=== PATIENT | male | born 1955 | race Caucasian/White ===

== ENCOUNTER → 2017-04-19 | Outpatient (CLI) | payer OTHER ==
--- NOTE | ~2017-04-19 | P ---
[facility] [place] [address] PROCEDURE REPORT Name: GO ESQUIVEL Room #: REG [facility]#: [id number] Admission: 04/19/17 Attend Phys: Kishan Samson MD Discharge: Date of : 55 Report #: [id number] THIS REPORT FOR: //name// CC: Chacha PEARSON DATE OF SERVICE: 04/19/2017 BRIEF HISTORY: The patient is a 61-year-old male followed by Dr. Cortez, who has a history of a long-segment Guillermo esophagus, who was recently found to have evidence of low-grade dysplasia and was recommended for radiofrequency ablation of the Guillermo mucosa. PREOPERATIVE DIAGNOSIS: Long-segment Guillermo with low-grade dysplasia. POSTOPERATIVE DIAGNOSES: 1. Long-segment Guillermo with low-grade dysplasia. 2. Moderate sliding type hiatus hernia. MEDICATIONS: Deep sedation with propofol per anesthesia. SPECIMEN: None. ESTIMATED BLOOD LOSS: None. PROCEDURE: EGD with radiofrequency ablation of Guillermo mucosa. FINDINGS: Prior to propofol sedation, procedure of upper endoscopy was discussed with the patient as well as potential risks and its complications. He indicates he understands and desires to proceed. DESCRIPTION OF PROCEDURE: With the patient in left lateral decubitus position, the [employer] video endoscope was inserted in the cervical esophagus under direct vision without difficulty. Examination of this organ through its entire length revealed normal esophageal mucosa in the proximal to mid esophagus. However, the scope was advanced distally, typical appearing Guillermo mucosa was seen. There was approximately 8 cm segment of Guillermo mucosa. Guillermo mucosa involved the entire circumference of the esophagus. The Guillermo extended down to the top of the gastric folds. At this point, he had about a 3-4 cm sliding type hiatus hernia. Mucosa of the hernia was normal. The Guillermo mucosa was carefully inspected. It was completely flat; no strictures, masses, ulcers, nodules or raised lesions. Scope was advanced through the hernia into the stomach, which was examined on end view as well as retroflexed views. The gastric mucosa was normal. On retroflexion, no mass lesions were seen. The hiatus hernia was again noted. The scope was advanced distally. The pylorus was normal. [facility] [address] [place] [address] PROCEDURE REPORT Name: GO ESQUIVEL Room #: REG [facility].Ofelia.#: [id number] Admission: 04/19/17 Attend Phys: Kishan Samson MD Discharge: Date of : 55 Report #: [id number] Duodenal bulb was normal and duodenal sweep was normal. At that point, the scope was drawn back in the esophagus. We then carefully rinsed the esophagus with Mucomyst solution. The scope was withdrawn and fitted with the 90 Ultra device and reinserted back into the esophagus. We then treated his esophagus from the top of the gastric folds to the Z line in the mid esophagus. Two applications of 12 joules and 40 hernandez were applied. On the first pass, a total of 34 applications were applied. The scope and the device were withdrawn. The device was fitted with a cleaning chamber. We then scraped the coagulant from the benoit of the esophagus. The cleaning device was reinserted in the esophagus. Two applications were applied once further at each point. However, due to spasticity and reduced visibility, we terminated the procedure after a total of 60 applications were applied for both the first pass and the second pass. There was good hemostasis. Scope was withdrawn. The patient tolerated the procedure well. CONDITION OF THE PATIENT UPON DISCHARGE: Following procedure, the patient drowsy and will be discharged home when fully ambulatory. INSTRUCTIONS TO THE PATIENT AND FAMILY AT THE TIME OF DISCHARGE: We will have the patient use omeprazole 20 mg twice daily. We will also have him start clear liquid diet. He is to use a GI cocktail as needed as well as hydrocodone elixir as needed. We will also use sucralfate 1 gram 4 times daily. He will return for repeat treatment in about 8 weeks. <ELECTRONICALLY SIGNED> By: Kishan Samson MD 04/23/17 1216 0928 [id number] Kishan Samson MD /nt
== END | disposition home or self-care (01) ==
LOC: GI 07:08
DX: K22.710 Barrett's esophagus with low grade dysplasia (principal); K44.9 Diaphragmatic hernia without obstruction or gangrene
CPT/HCPCS: 62110; 62900

== ENCOUNTER → 2017-08-30 | Outpatient (CLI) | payer OTHER ==
[~2017-08-30] VITALS: Ht 177.8 cm; Wt 107.0 kg
[~2017-08-30] MED LIST: BENICAR20 MG PO; CENTRUM SILVER1 EAC2 PO; OMEPRAZOLE40 MG PO; VITAMIN D-32000 UNIT PO
--- NOTE | ~2017-08-30 | P ---
[facility] [place] [address] PROCEDURE REPORT Name: GO ESQUIVEL [id number] Admission: 08/30/17 Attend Phys: Kishan Samson MD Discharge: Date of : 55 Report #: [id number] THIS REPORT FOR: //name// CC: URVASHI PEARSON BRIEF HISTORY: The patient is a 62-year-old male with history of an 8 cm segment Guillermo esophagus, low-grade dysplasia. He presents for followup of his initial treatment of Guillermo esophagus with radiofrequency ablation. PREOPERATIVE DIAGNOSIS: Guillermo esophagus with low-grade dysplasia. POSTOPERATIVE DIAGNOSES: 1. Guillermo esophagus with low-grade dysplasia. 2. Xxkwq-rv-nbwxgnoe sliding type hiatus hernia. MEDICATIONS: Deep sedation with propofol per anesthesia. SPECIMEN: None. ESTIMATED BLOOD LOSS: 3 mL. PROCEDURE: EGD with radiofrequency ablation of residual Guillermo mucosa in the distal esophagus. FINDINGS: Prior to propofol sedation, the procedure of EGD and radiofrequency ablation was reviewed with the patient as well as potential risks and its complications. He indicates he understands and desires to proceed. DESCRIPTION OF PROCEDURE: With the patient in left lateral decubitus position, the [employer] video endoscope was inserted in the cervical esophagus under direct vision without difficulty. Examination of this organ through its entire length revealed normal esophageal mucosa into the distal esophagus. In the distal esophagus, there were noted to be multiple islands of Guillermo mucosa surrounded by normal-appearing squamous mucosa. The squamocolumnar junction was inspected and there did appear to be a broad tongue at the squamocolumnar junction as well. No strictures or masses were seen. All the Guillermo mucosa was flat. The scope was advanced into a ebnnf-vv-sihwhysj sized sliding type hiatus hernia. Mucosa in the hernia was unremarkable. Scope was advanced in the stomach, was examined on end view as well as retroflexed views. The mucosa was normal on end view as well as retroflexed views. The hiatus hernia was seen in the retroflexed position. No mass lesions were seen. The pylorus, duodenal bulb and postbulbar sweep were inspected and noted to be unremarkable. Scope was withdrawn back into the esophagus. We rinsed the distal esophagus with Mucomyst solution. The Mucomyst solution was aspirated away. We then [address] [address] PROCEDURE REPORT Name: GO ESQUIVEL Room #: REG Ede Castro#: [id number] Admission: 08/30/17 Attend Phys: Kishan Samson MD Discharge: Date of : 55 Report #: [id number] withdrew the scope and fitted with the ____ device and reinserted the scope with the device and treated all visible areas of Guillermo's and distal esophagus with 12 joules per cm2 squared with 40 hernandez per cm2. Each point was treated with 2 applications of radiofrequency energy. Scope withdrawn, the device was removed and scope was fitted with a cleaning chamber and the coagulant was scraped off of the treated areas. We then placed the clean device on the scope and repeated treatment at all points. A total of 9 areas were treated today with a total of 4 applications to each area. The patient tolerated the procedure well. CONDITION OF THE PATIENT UPON DISCHARGE: Following procedure, the patient drowsy, aroused, conversant and will be discharged home when fully ambulatory. INSTRUCTIONS TO THE PATIENT AND FAMILY AT THE TIME OF DISCHARGE: He should continue his PPI therapy. He should start with clear liquids today and advance as tolerated. We should repeat his EGD with possible radiofrequency ablation in about 8 weeks. By: 0938 [id number] Kishan Samson MD /zaria
== END ==
LOC: GI 07:41
DX: K22.710 Barrett's esophagus with low grade dysplasia (principal); K44.9 Diaphragmatic hernia without obstruction or gangrene; K21.9 Gastro-esophageal reflux disease without esophagitis; Z79.899 Other long term (current) drug therapy; Z98.890 Other specified postprocedural states; I12.9 Hypertensive chronic kidney disease with stage 1 through stage 4 chronic kidney disease, or unspecified chronic kidney disease; N18.3 Chronic kidney disease, stage 3 (moderate)
CPT/HCPCS: 62110

== ENCOUNTER → 2017-11-01 | Outpatient (CLI) | payer OTHER ==
[~2017-11-01] VITALS: Ht 177.8 cm; Wt 104.3 kg
--- NOTE | ~2017-11-01 | P ---
[facility] [place] [address] PROCEDURE REPORT Name: GO ESQUIVEL Room #: REG [facility].#: [id number] Admission: 11/01/17 Attend Phys: Kishan Samson MD Discharge: Date of : 55 Report #: [id number] THIS REPORT FOR: //name// CC: Chacha PEARSON BRIEF HISTORY: The patient is a 62-year-old male with a known 70 cm segment of Guillermo esophagus for followup radiofrequency ablation of his Guillermo mucosa. He was last treated a little more than 8 weeks ago and presents for followup treatment. He reports he has done well. PREOPERATIVE DIAGNOSES: Long segment Guillermo esophagus with low-grade dysplasia. POSTOPERATIVE DIAGNOSES: 1. Long segment Guillermo esophagus, low-grade dysplasia. 2. Tcfgj-tm-vybthkdd hiatus hernia. MEDICATIONS: Deep sedation with propofol per anesthesia. SPECIMEN: None. ESTIMATED BLOOD LOSS: None. PROCEDURE: EGD with radiofrequency ablation of Guillermo esophagus. FINDINGS: Prior to propofol sedation, the procedure of upper endoscopy and radiofrequency ablation was discussed with the patient as well as potential risks, benefits, and complications. He indicates he understands and desires to proceed. With the patient in left lateral decubitus position, the [employer] video endoscope was inserted in the cervical esophagus under direct vision without difficulty. Examination of this organ through its entire length revealed mostly normal appearing squamous mucosa. However, multiple islands of Guillermo mucosa were noted scattered throughout the entire distal 8 cm segment of the esophagus. They were all flat. None of the areas were raised. These islands extended from the squamocolumnar junction to the mid esophagus. The scope was advanced into the stomach, which was examined on end view as well as retroflexed views. He had normal appearing gastric mucosa. No ulcers or mass lesions were seen. Upon retroflexion, no mass lesions were seen. The pylorus, duodenal bulb, and postbulbar sweep were inspected and noted to be within normal limits. The scope was then withdrawn back in the esophagus. The esophagus was rinsed with a Mucomyst solution. After rinsing, the Mucomyst was aspirated from the esophageal lumen in the stomach. The scope was withdrawn and fitted with a [facility] [address] [place] [address] PROCEDURE REPORT Name: GO ESQUIVEL Room #: REG [facility].#: [id number] Admission: 11/01/17 Attend Phys: Kishan Samson MD Discharge: Date of : 55 Report #: [id number] radiofrequency 60 catheter. The scope and catheter were reintroduced in the esophagus under direct vision without difficulty. We then went and targeted 15 areas and treated all visible areas of Barretts with 2 applications of 12 joules per cm2 and 40 hernandez per cm2. Two applications were applied at each point and on the first pass, a total of 30 applications were applied. The scope was withdrawn, the device was removed and cleaned and the scope was fitted with a cleaning chamber and the mucosa was scraped from the treated areas. We then returned with a device and repeated applications in all areas and with some overlap we used a 32 additional applications at the same energy settings for a total of 62 applications today. All visible areas were treated. The scope and device were withdrawn. The patient tolerated the procedure well. CONDITION OF THE PATIENT UPON DISCHARGE: Following procedure, the patient drowsy, arousable and conversant and will be discharged home when fully ambulatory. INSTRUCTIONS TO THE PATIENT AND FAMILY AT THE TIME OF DISCHARGE: The patient with Guillermo, treated as described above. He should continue twice daily PPI. May use GI cocktail and Tylenol No.3 Elixir as needed. He should return in 8 weeks for repeat evaluation and possible treatment or biopsy at this time. <ELECTRONICALLY SIGNED> By: Kishan Samson MD 11/01/17 1656 0827 1135 Kishan Samson MD /nt
== END | disposition home or self-care (01) ==
LOC: GI 06:35
DX: K22.710 Barrett's esophagus with low grade dysplasia (principal); K44.9 Diaphragmatic hernia without obstruction or gangrene; I12.9 Hypertensive chronic kidney disease with stage 1 through stage 4 chronic kidney disease, or unspecified chronic kidney disease; N18.3 Chronic kidney disease, stage 3 (moderate); K21.9 Gastro-esophageal reflux disease without esophagitis; Z98.890 Other specified postprocedural states; Z79.899 Other long term (current) drug therapy

== ENCOUNTER → 2019-08-14 | Outpatient (CLI) | payer OTHER ==
[~2019-08-14] VITALS: Ht 177.8 cm; Wt 106.6 kg
[~2019-08-14] MED LIST changes: +ASPIR 8181 MG PO; +CARVEDILOL12.5 MG PO; +FISH OIL 1,001000 M2 PO; +LIPITOR80 MG PO; +OLMESARTAN MEDO20 MG PO; +TYLENOL EXTRA500 MG PO; +VIAGRA100 MG PO
--- NOTE | 2019-08-17 14:58 | P ---
[facility] [place] [address] PROCEDURE REPORT Name: GO ESQUIVEL [id number] Admission: 08/14/19 Attend Phys: Kishan Samson MD Discharge: Date of : 55 Report #: [id number] THIS REPORT FOR: //name// CC: JAMESON Samson OUTPATIENT ENDOSCOPY REPORT BRIEF HISTORY: The patient is a 63-year-old male, who has a history of long segment Guillermo with low-grade dysplasia, who had previously undergone radiofrequency ablation. However, he had a cardiac event and required a stent placement and antiplatelet therapy. We were unable to discontinue antiplatelet therapy for followup treatment. He now presents for followup treatment of his long segment Guillermo's with low-grade dysplasia. His last treatment session was in 10/2017. PREOPERATIVE DIAGNOSIS: Long segment Guillermo's esophagus with low-grade dysplasia. POSTOPERATIVE DIAGNOSES: 1. Guillermo's esophagus, patchy. 2. A 3 cm sliding type hiatus hernia. 3. A small polypoid lesion, GE junction, benign appearance. MEDICATIONS: Deep sedation with propofol per anesthesia. SPECIMEN: Biopsy of polypoid lesion, GE junction. ESTIMATED BLOOD LOSS: 3 mL. PROCEDURE: EGD with radiofrequency ablation and biopsy. PROCEDURE FINDINGS: Prior to propofol sedation, the procedure of upper endoscopy and radiofrequency ablation was reviewed with the patient as well as potential risks and its complications. He indicates he understands and desires to proceed. DESCRIPTION OF PROCEDURE: With the patient in left lateral decubitus position, the Olympus video endoscope was inserted in cervical esophagus and advanced under direct vision. Examination of the esophagus through its entire length revealed normal appearing mucosa in the proximal and mid esophagus. However, as we advanced the scope distally, 35 cm, there were 3 islands of Guillermo's mucosa, which were no more than about 6 mm in greatest dimension. The mucosa was flat. No further evidence of Guillermo was seen until the squamocolumnar junction was inspected. There was an area where the squamocolumnar junction was irregular and thought possibly to represent an area of Guillermo. In addition, at this [facility] [address] [place] [address] PROCEDURE REPORT Name: ALVINGO Room #: REG ASH Johnson.#: [id number] Admission: 08/14/19 Attend Phys: Kishan Samson MD Discharge: Date of : 55 Report #: [id number] level, there was a smooth benign appearing polypoid lesion that was about 8 mm in greatest dimension. It was prominent and stuck out. This may just be a hyperplastic fold in the cardia of the stomach. However, since he has Guillermo and low-grade dysplasia, it was biopsied. The esophagus was examined with both white light and narrow banded imaging. The scope was advanced into a 3 cm sliding type hiatus hernia. The mucosa in the hernia was unremarkable. The scope was advanced fully into the stomach, was examined on end view as well as retroflexed views. The gastric mucosa was unremarkable. Examination of proximal stomach on end view as well as retroflexed views revealed the hiatus hernia. No other lesions. Specifically, a mass lesion was not seen. Pylorus was unremarkable. Duodenal bulb and postbulbar sweep were inspected and noted to be unremarkable. The scope was then withdrawn back into the esophagus and was rinsed with a Mucomyst solution. Fluid was aspirated away from the esophagus and the scope was withdrawn and fitted with the 90 treatment device. Initially, 3 areas of Guillermo were identified, 1 in squamocolumnar junction and 2 islands distally in the esophagus. All 3 areas were treated with 2 passes per automotive service consultant's instructions. We then withdrew the scope. The device was removed and cleaned. A cleaning chamber was attached to the endoscope and the scope was reinserted and the coagulants scraped from the treated areas. We then refilled with the device and returned to the esophagus. One more island of Guillermo was seen in the distal esophagus. This area was treated with 2 applications. The coagulant was scraped with the aids of the device and was treated with 2 more applications. The other 3 sites were also treated with 2 additional applications. All visible areas were treated. The scope was withdrawn. The patient tolerated the procedure well. CONDITION OF THE PATIENT UPON DISCHARGE: Following procedure, the patient drowsy, aroused, conversant, and will be discharged home when fully ambulatory. INSTRUCTIONS TO THE PATIENT AND FAMILY AT THE TIME OF DISCHARGE: We will follow up on the path obtained today. I suspect this is just a hyperplastic fold, but we will follow up on biopsies. 3 focal areas were treated today. We will have him return in 8 weeks for repeat endoscopy and possible treatment, however, hopefully at that time, all areas of Guillermo's would have been treated. He should start with clear liquid diet today and advance as tolerated. He should continue his twice daily PPI. He may use GI cocktail and Lortab as needed, however, with limited treatment areas, he may not require much in the way of pain medicines. <ELECTRONICALLY SIGNED> By: Kishan Samson MD 08/17/19 1458 0839 0936 Kishan Samson MD /nt
--- NOTE | 2019-08-18 11:07 | PATH ---
[facility] [address] [place] [address] PATHOLOGY RPT PROCEDURE Name: MICHAEL CHOUDHURY Room #: REG ASH Castro#: [id number] Admission: 08/14/19 Date of : 55 Discharge: Report #: [id number] Path Case #: [id number] [facility] Accession Number: [id number] . 01 Material submitted: . colon - BX POLYPOID LESION AT GE JUNCTION . 01 Clinical history: . History Guillermo's esophagus with low-grade dysplasia status post radiofrequency ablation lesion at GE junction Guillermo's . 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 (See comment). (FLORENTINO:brian; 08/17/2019) [facility]BR 08/17/2019 1439 Local . 02 Comment: No background intestinal metaplasia or Guillermo's mucosa-like changes are identified. Clinical and endoscopic correlation is required. The case is co-reviewed with Dr. Genie Andrade. (CYNDIW:brian; 08/17/2019) . 02 Electronically signed: . Lulu Acevedo MD, Pathologist NPI- [id number] . 01 Gross description: . The specimen is received in formalin, labeled "Michael Choudhury, BX polypoid lesion at the GE junction", are two segments of jones soft tissue measuring 0.1 cm and 0.5 cm in greatest dimension. Entirely submitted in A1. ([facility]; 08/14/2019) [facility] 08/14/20192022 Local . 02 Pathologist provided ICD-10: K31.7 . 02 CPT . 166368 Specimen Comment: A courtesy copy of this report has been sent to Specimen Comment: [phone], . Specimen Comment: Report sent to / DR SAGASTUME Performed at: [address] [facility], [place] [id number] [place] [address] PATHOLOGY RPT PROCEDURE Name: MICHAEL CHOUDHURY Room #: REG ASH Castro#: [id number] Admission: 08/14/19 Date of : 55 Discharge: Report #: [id number] Path Case #: [id number] MD Alexey Rojas MD Phone: [phone] Performed at: [address] [id number] MD Genie Andrade MD Phone: [phone]
== END | disposition home or self-care (01) ==
LOC: GI 07:10
DX: K22.710 Barrett's esophagus with low grade dysplasia (principal); K31.7 Polyp of stomach and duodenum; K44.9 Diaphragmatic hernia without obstruction or gangrene; I13.0 Hypertensive heart and chronic kidney disease with heart failure and stage 1 through stage 4 chronic kidney disease, or unspecified chronic kidney disease; N18.3 Chronic kidney disease, stage 3 (moderate); K21.9 Gastro-esophageal reflux disease without esophagitis; I50.9 Heart failure, unspecified; E78.5 Hyperlipidemia, unspecified; Z79.82 Long term (current) use of aspirin; Z98.890 Other specified postprocedural states; Z79.899 Other long term (current) drug therapy
CPT/HCPCS: 62110; 62900

== ENCOUNTER → 2019-10-29 | Outpatient (CLI) | payer OTHER ==
[~2019-10-29] VITALS: Ht 177.8 cm; Wt 108.0 kg
--- NOTE | 2019-10-30 12:40 | P ---
[facility] [place] [place] [address] PROCEDURE REPORT Name: GO ESQUIVEL Room #: REG [facility] Alex.#: [id number] Admission: 10/29/19 Attend Phys: Kishan Samson MD Discharge: Date of : 55 Report #: [id number] THIS REPORT FOR: //name// CC: JAMESON Samson OUTPATIENT UPPER ENDOSCOPY REPORT BRIEF HISTORY: The patient is a 64-year-old male with a history of Guillermo's esophagus. He has had a long segment Guillermo's esophagus with low-grade dysplasia and has undergone multiple treatments with radiofrequency ablation. Last treatment was a little more than 8 weeks ago. He presents for followup treatment where biopsy is indicated. He denies any symptoms at this time. His reflux symptoms are well controlled. At the last time, he was scoped, he was found to have a polypoid lesion at the GE junction. This lesion was biopsied. It revealed evidence of squamous and gastric cardia type mucosa and evidence of low-grade dysplasia consistent with a tubular adenoma. PREOPERATIVE DIAGNOSES: History of Guillermo with low-grade dysplasia and polypoid lesion at the GE junction. POSTOPERATIVE DIAGNOSES: 1. Guillermo's esophagus, endoscopically appears to be in remission. 2. Polyp, gastroesophageal junction. 3. Small hiatus hernia. 4. Diffuse gastritis. MEDICATIONS: Deep sedation with propofol per anesthesia. SPECIMENS: 1. Biopsy of a questionable localized area of Guillermo's esophagus, GE junction. 2. Random biopsies along the GE junction. 3. Polyp from GE junction. ESTIMATED BLOOD LOSS: 3 mL. PROCEDURE: EGD with biopsy and snare polypectomy. FINDINGS: Prior to propofol sedation, the procedure of upper endoscopy and potential radiofrequency ablation was reviewed with the patient as well as potential risks and its complications. He indicates he understands and desires to proceed. DESCRIPTION OF PROCEDURE: With the patient in left lateral decubitus position, the Olympus video endoscope was inserted in the cervical esophagus under direct vision without difficulty. Examination of this organ through its entire length [address] [address] PROCEDURE REPORT Name: GO ESQUIVEL Room #: REG E[facility] Castro#: [id number] Admission: 10/29/19 Attend Phys: Kishan Samson MD Discharge: Date of : 55 Report #: [id number] revealed normal esophageal mucosa down the squamocolumnar junction. The esophagus was examined with both white light and narrow banded imaging. The mucosa was intact. The mucosa was completely flat. There were no ulcerations or erosions. I did not see any evidence of definite Guillermo mucosa in the body of the esophagus. The squamocolumnar junction was inspected. There was 1 area along the squamocolumnar junction, which was a triangular shaped and no more than about 1.5 cm in greatest dimension. This may represent an irregular squamocolumnar junction, but targeted biopsies were obtained of this area. The squamocolumnar junction appeared to be at the top of the gastric folds. Random biopsies were obtained. The previously biopsied polypoid lesion was seen just distal to the squamocolumnar junction. Adenomatous changes were noted in this area on previous biopsy, so this was removed by cold snare polypectomy. It was completely removed. A small hiatus hernia was noted as well. The mucosa of hernia was unremarkable. The scope was advanced into the stomach and was examined on end view as well as retroflexed views. He was noted to have a gastritis and this has been previously noted in the past. Biopsies were not repeated today. Upon retroflexion, a small hiatus hernia was seen, but no other abnormalities were identified. The pylorus, duodenal bulb, and postbulbar sweep were all inspected and noted to be unremarkable. At that point, the scope was slowly withdrawn and careful circumferential views were obtained and the above-mentioned findings were confirmed. CONDITION OF THE PATIENT UPON DISCHARGE: Following procedure, the patient drowsy, aroused, conversant and will be discharged home when fully ambulatory. INSTRUCTIONS TO THE PATIENT AND FAMILY AT THE TIME OF DISCHARGE: I do not see definite Guillermo mucosa. There was 1 questionable area and targeted biopsies were obtained. We will follow up on biopsies and make further recommendations. The polypoid lesion at the top of the gastric folds was removed and we will follow up on pathology and make further recommendations. If Guillermo mucosa is noted on either biopsies, we will need to treat those areas. If there is no Guillermo mucosa, would repeat upper endoscopy and biopsy in 6 months. He should continue his PPI at this point in time. <ELECTRONICALLY SIGNED> By: Kishan Samson MD 10/30/19 1240 0853 1033 Kishan Samson MD /zaria
--- NOTE | 2019-11-02 19:06 | PATH ---
[facility] [address] [place] [address] PATHOLOGY RPT PROCEDURE Name: MICHAEL CHOUDHURY Room #: REG ASH Johnson.#: [id number] Admission: 10/29/19 Date of : 55 Discharge: Report #: [id number] Path Case #: [id number] [facility] Accession Number: [id number] . 01 Material submitted: . PART A: colon - BX OF QUESTIONABLE BARRETTS AT GE JUNCTION PART B: colon - RANDOM BX AT GE JUNCTION PART C: colon - POLYP AT GE JUNCTION . 01 Clinical history: . Lee's esophagus with dysplasia Previous radiofrequency ablation B. Rule out Lee's . 02 Diagnosis: A. Gastroesophageal mucosa, questionable Lee's at GE junction, endoscopic biopsy: - LEE'S METAPLASTIC MUCOSA SHOWING HIGH GRADE DYSPLASIA (PLEASE SEE COMMENT). - Negative for malignancy. - Focal squamous mucosa with mild esophagitis. . B. Gastroesophageal mucosa, random at GE junction rule out Lee's, endoscopic biopsy: - LEE'S METAPLASTIC MUCOSA SHOWING LOW GRADE DYSPLASIA (PLEASE SEE COMMENT). - Negative for high grade dysplasia. - Focal squamous mucosa with mild esophagitis. . C. Polyp, at GE junction, endoscopic biopsy: - Tubular adenoma. - Negative for high grade dysplasia. . (IUV:mml; 10/30/2019) [facility] 11/02/2019 1759 Local . 02 Comment: This case was co-reviewed by Dr. Vinny Joshua, who concurs with my diagnoses. . (IUV:mml; 10/30/2019) . 02 Electronically signed: . Genie Andrade MD, Pathologist NPI- [id number] . 01 Gross description: . [address] [address] PATHOLOGY RPT PROCEDURE Name: MICHAEL CHOUDHURY Room #: REG [facility] Alex.#: [id number] Admission: 10/29/19 Date of : 55 Discharge: Report #: [id number] Path Case #: [id number] A. The specimen is received in formalin, labeled "Michael Choudhury BX of questionable Lee's at GE junction" and consists of multiple fragments of pink-jones tissue measuring 1.0 x 0.6 x 0.3 cm in aggregate which are entirely submitted in A1. . B. The specimen is received in formalin, labeled "Michael Choudhury random BX at GE junction" and consists of 4 fragments of pink-jones tissue measuring between 0.2 x 0.2 cm and 0.5 x 0.2 cm which are entirely submitted in B1. . C. The specimen is received in formalin, labeled "Michael Choudhury, polyp at GE junction" and consists of a polypoid segment of pink-jones tissue measuring 0.8 x 0.4 x 0.4 cm. The margin is inked black. It is trisected and entirely submitted in C1. (SDY; 10/29/2019) SYU/SYU 10/29/2019 1613 Local . 02 Pathologist provided ICD-10: K22.710, K20.9, D13.1, K22.711 . 02 CPT . 600507, 752959, 287703 Specimen Comment: A courtesy copy of this report has been sent to [phone], [phone] Specimen Comment: [id number] Specimen Comment: Report sent to and Performed at: [address] [facility], [place], [place] [id number] MD Alexey Rojas MD Phone: [phone] Performed at: [address] [id number] MD Genie Andrade MD Phone: [phone]
== END | disposition home or self-care (01) ==
LOC: GI 06:31
DX: K22.711 Barrett's esophagus with high grade dysplasia (principal); K22.710 Barrett's esophagus with low grade dysplasia; D13.1 Benign neoplasm of stomach; K21.0 Gastro-esophageal reflux disease with esophagitis; K44.9 Diaphragmatic hernia without obstruction or gangrene; K29.70 Gastritis, unspecified, without bleeding; I13.0 Hypertensive heart and chronic kidney disease with heart failure and stage 1 through stage 4 chronic kidney disease, or unspecified chronic kidney disease; N18.3 Chronic kidney disease, stage 3 (moderate); I50.22 Chronic systolic (congestive) heart failure; E78.5 Hyperlipidemia, unspecified; Z98.890 Other specified postprocedural states; Z79.82 Long term (current) use of aspirin; Z79.899 Other long term (current) drug therapy
CPT/HCPCS: 62110; 62900